=== PATIENT | female | born 1970 | race Caucasian/White ===

== ENCOUNTER 2018-07-16 10:05 | Observation (INO) ==
--- NOTE | 2018-07-16 10:18 | Emergency Department Note ---
Disposition Clinical Impression: Acute renal insufficiency Abdominal pain Qualifiers: Abdominal location: right upper quadrant Qualified Code(s): R10.11 - Right upper quadrant pain Crohn disease Qualifiers: Gastrointestinal tract location: unspecified location Digestive disease complication type: unspecified complication Qualified Code(s): K50.919 - Crohn's disease, unspecified, with unspecified complications Disposition: Admitted As Inpatient Condition: Good Referrals: Luke Anna CNP [Primary Care Provider] - () Forms: ED Satisfaction Letter Abdominal Pain HPI - General Chief Complaint: ED Abdominal Pain Stated Complaint: abd pain, n/v Time Seen by Provider: 07/16/18 10:10 Source: patient Mode of arrival: private vehicle Limitations: no limitations Nursing Notes Reviewed: Yes Vital Signs Reviewed: Yes - History of Present Illness HPI Narrative: Patient ate she started early yesterday for the "flare of my Crohn's". She states she has had right lower quadrant abdominal cramping and sharp pain around the area of her ileostomy. She relates she has had ileostomy for 30 years and she is having increased liquid yellow output. She has not had passage of blood or mucus. She did have some nausea and vomiting with one episode of vomiting yesterday. She has had persistent nausea with decreased oral intake. Her abdominal cramping has not been responsive to Bentyl nor her nauseous to Zofran. She states she started feels somewhat dry and dizzy today prompting her to come in for evaluation. She relates this is typical with her spells of her Crohn's and her last episode was a couple weeks ago. She denies any ill exposures but she states she did go to latter day on Friday. She denies fevers but has had chills. She has at most "a little cough" and no chest pain or shortness of breath. She denies difficulty with urination. She relates she often responds to a steroid when it flares like this. Pt Subjective Complaint: abdominal pain Onset (ago): day(s) (1) Consistency: Worsening Location: RLQ Pain Severity: moderate Quality: cramping, aching, sharp Radiation: none Migration to: no migration Improves with: nothing Worsens with: eating, bowel movement Context: history of similar episodes Associated symptoms: Reports: nausea, vomiting, diarrhea, chills, anorexia. Denies: fever, constipation, dysuria, hematemesis, hematochezia, melena, hematuria, syncope Treatments prior to arrival: other (Bentyl, Zofran) - Related Data Home Medications Medication Instructions Recorded Confirmed Citalopram [CeleXA] 10 mg PO DAILY 04/18/18 07/16/18 Dicyclomine [Bentyl] 10 mg PO QID 04/18/18 07/16/18 Duloxetine HCl [Cymbalta] 60 mg PO BID 04/18/18 07/16/18 Gabapentin [Neurontin] 900 mg PO TID 04/18/18 07/16/18 Metoprolol [Lopressor] 50 mg PO BID 04/18/18 07/16/18 Oxycodone HCl [Oxycontin] 10 mg PO TID 04/18/18 07/16/18 Pantoprazole Sodium [Protonix] 40 mg PO DAILY 04/18/18 07/16/18 Quetiapine Fumarate [SEROquel] 25 mg PO HS 04/18/18 07/16/18 Warfarin [Coumadin] 2 mg PO DAILY 04/18/18 07/16/18 Previous Rx's Medication Instructions Recorded predniSONE [PredniSONE] 60 mg PO DAILY #15 tablet 07/06/18 Allergies Allergy/AdvReac Type Severity Reaction Status Date / Time cephalexin [From Keflex] Allergy Hives Verified 04/18/18 18:21 All systems ED: reviewed and negative except as stated. Abdominal Pain PMH - Past Medical History Medical history: Reports: atrial fibrillation, hypertension, other (Crohn's) Female Surgical History: Reports: colostomy (Ileostomy), hysterectomy, other ( Appendectomy, bowel resection) Psychiatric history: Reports: anxiety - Social History Smoking status: Never smoker Alcohol use: Reports: none Drug use: Reports: none Physical Exam - General Limitations: no limitations General appearance: alert, in no apparent distress - Head Head exam: atraumatic, normocephalic, normal inspection - Eye Eye exam: Present: normal appearance, PERRL, EOMI. Absent: conjunctival inject ion - ENT ENT exam: normal exam, normal oropharynx, mucous membranes dry - Neck Neck exam: Present: normal inspection, full ROM, trachea midline - Chest Chest inspection: Present: normal inspection, symmetric chest wall rise - Respiratory Respiratory exam: Present: normal lung sounds bilaterally. Absent: respiratory distress, wheezes, prolonged expiratory phase - Cardiovascular Cardiovascular exam: Present: regular rate, normal rhythm, normal heart sounds. Absent: tachycardia - Abdominal Exam Abdominal exam: Present: soft, normal bowel sounds, other (Patient's ileostomy is intact. Her ileostomy bag has small liquid contents and gas.). Absent: distention, guarding, rebound, rigidity, Greer's sign Abdominal tenderness: Present: RLQ, moderate - Extremities Exam Extremities exam: Present: normal inspection, full ROM, normal capillary refill. Absent: tenderness, pedal edema - Expanded Lower Extremity Exam Neurovascular/Tendon exam: Present: normal capillary refill. Absent: motor deficit, sensory deficit, tendon deficit Gait: observed and normal - Back Exam Back exam: Present: normal inspection, full ROM. Absent: tenderness, CVA tenderness (R), CVA tenderness (L) - Neurological Exam Neurological exam: Present: alert, oriented X3, normal gait - Psychiatric Psychiatric exam: Present: normal affect, normal mood - Skin Skin exam: Present: warm, dry, intact, normal color. Absent: diaphoresis, pallor Course Course Narrative: Patient is evaluated immediately upon arrival. She is currently nontoxic in appearance, not tachycardic or hypertensive or febrile. Believe she will benefit from a bolus of IV fluids and I will start her on some Phenergan, Solu- Medrol and Toradol for inflammation and pain. We will check a baseline CBC, chemistries as well as her INR. I discussed the patient's expectations and she does believe that burst of steroids will be helpful until she can follow up with her GI specialist at [facility]. 1100: Patient does have leukocytosis and renal insufficiency suggesting sig nificant degree of dehydration and stress. I discussed her disposition with her and she is concerned about going home and maintaining adequate hydration. I advised I will contact Dr. Anaya to discuss her inpatient observation. I reviewed the options for other imaging and she would like to go without at this time. She understands if her pain was to become worse or different she may need imaging. Vital Signs Temperature 97.5 F L 07/16/18 10:06 Pulse Rate 74 07/16/18 10:06 Respiratory Rate 18 07/16/18 10:06 Blood Pressure 125/87 07/16/18 10:06 O2 Sat by Pulse Oximetry 97 07/16/18 10:06 Temperature 97.5 F L 07/16/18 10:06 Pulse Rate 72 07/16/18 10:56 Respiratory Rate 14 07/16/18 10:56 Blood Pressure 113/78 07/16/18 10:56 O2 Sat by Pulse Oximetry 100 07/16/18 10:56 Oxygen Delivery Oxygen Delivery Room Air Abdominal Pain - Differential Diagnosis Differential Diagnosis: Likely: abdominal pain non-specific, other (Exacerbation of Crohn's). Unlikely: acute appendicitis, calculus of kidney, pancreatitis, small bowel obstruction - Lab Data Lab results reviewed: Yes I reviewed the patient's lab results. Result diagrams: 07/16/18 10:30 07/16/18 10:30 Lab Results 07/16/18 07/16/18 07/16/18 Range/Units 10:30 10:30 10:30 WBC 16.2 H (4.3-11.1) K/mcL RBC 4.38 (3.82-4.97) M/mcL Hgb 13.2 (11.5-15.4) g/dL Hct 39.7 (35.3-44.9) % MCV 90.6 (83.0-100.0) fL MCH 30.1 (28.0-33.3) pg MCHC 33.2 (31.6-35.5) g/dL RDW 13.8 (11.5-14.5) % Plt Count 420 H (140-400) K/mcL MPV 7.9 L (9.4-12.4) fL Immature Gran % 1.2 (0-4) % Seg Neutrophils % 76.1 % Lymphocytes % 13.6 % Monocytes % 8.4 % Eosinophils % 0.6 % Basophils % 0.1 % Neutrophils # 12.3 H (1.6-8.9) K/mcL Lymphocytes # 2.2 (0.6-4.6) K/mcL Monocytes # 1.4 H (0.0-1.3) K/mcL Eosinophils # 0.1 (0.0-0.6) K/mcL Basophils # 0.0 (0.0-0.2) K/mcL PT 20.4 H (9.4-12.1) Seconds INR 1.8 Sodium 133 L (136-145) mEq/L Potassium 4.0 (3.5-5.1) mEq/L Chloride 108 H (98-107) mEq/L Carbon Dioxide 18 L (23-29) mEq/L BUN 30 H (6-20) mg/dL Creatinine 1.64 H (0.60-1.20) mg/dL Est GFR ( Amer) 40 L (> 60) Est GFR (Non-Af Amer) 33 L (> 60) BUN/Creatinine Ratio 18 (6-26) Glucose 102 (70-105) mg/dL Calculated Osmolality 282 (280-300) Calcium 8.6 (8.6-10.3) mg/dL - Radiology Data Radiology results reviewed: Yes I reviewed the patient's radiology results. Single view KUB x-ray is performed. His demonstrate severe rightward curvature of the lumbar spine with De La Fuente traci fixation. Patient does not demonstrate obstructive findings on the visible abdomen. No acute abdominal process is seen. This is on my interpretation. Impressions KUB X-Ray 07/16/18 10:19 IMPRESSION: Nonobstructive bowel gas pattern without free air or other acute process identified. Postsurgical changes seen related to surgery for severe scoliotic deformity. Of note, there is lucency surrounding the screws within the sacroiliac joints, though less than 2 mm. These could be followed with plain films to observe for possible development of loosening. D/ / Nate Hart MD / Nate Hart MD Interpreting Provider: Nate Hart MD
[2018-07-16] MEDS ORDERED: *HR* Promethazine 25 MG/ML VIAL IVP ONE (10:19)
[2018-07-16] MEDS ORDERED: 0.9 % Sodium Chloride 1,000 ML IVC ONE (10:19)
[2018-07-16] MEDS ORDERED: methylPREDNISolone 125 MG/2 ML VIAL IVP ONE (10:19)
[2018-07-16] MEDS ORDERED: Ketorolac 30 MG/ML VIAL IVP ONE (10:19)
[2018-07-16 10:38] LABS: Basophils % 0.1 %; Eosinophils # 0.1 K/mcL (0.0-0.6); Eosinophils % 0.6 %; Hematocrit 39.7 % (35.3-44.9); Hemoglobin 13.2 g/dL (11.5-15.4); Immature Granulocytes % 1.2 % (0-4); Lymphocytes # 2.2 K/mcL (0.6-4.6); Lymphocytes % 13.6 %; Mean Corpuscular HGB Conc 33.2 g/dL (31.6-35.5); Mean Corpuscular Hemoglobin 30.1 pg (28.0-33.3); Mean Corpuscular Volume 90.6 fL (83.0-100.0); Mean Platelet Volume 7.9 fL (9.4-12.4); Monocytes # 1.4 K/mcL (0.0-1.3); Monocytes % 8.4 %; Neutrophils # 12.3 K/mcL (1.6-8.9); Platelet Count 420 K/mcL (140-400); Red Blood Count 4.38 M/mcL (3.82-4.97); Red Cell Distribution Width 13.8 % (11.5-14.5); Segmented Neutrophils % 76.1 %
[2018-07-16 10:41] LABS: INR 1.8; Prothrombin Time 20.4 Seconds (9.4-12.1)
[2018-07-16 10:52] LABS: Calcium 8.6 mg/dL (8.6-10.3)
[2018-07-16] MEDS ORDERED: Naloxone 0.4 MG/ML INJ IVP PRN (11:50)
[2018-07-16] MEDS ORDERED: 0.9 % Sodium Chloride 1,000 ML IVC SCH (11:50)
[2018-07-16] MEDS ORDERED: *HR* Promethazine 25 MG/ML VIAL IVP PRN (13:38)
[2018-07-16] MEDS: Ondansetron 4 MG/2 ML VIAL IVP PRN (14:22)
[2018-07-16] MEDS: *HR* OxyCODONE Immed Rel 5 MG TABLET PO PRN ×2 (14:23→18:58)
[2018-07-16] MEDS ORDERED: *HR* OxyCODONE Immed Rel 5 MG TABLET PO PRN (15:00)
[2018-07-16] MEDS ORDERED: Gabapentin 300 MG CAPSULE PO SCH (15:00)
[2018-07-16] MEDS ORDERED: Ondansetron 4 MG/2 ML VIAL IVP SCH (16:00)
--- NOTE | 2018-07-16 17:05 | Internal Med History&Physical ---
Date of Encounter: 07/16/18 Time of Encounter: 16:30 Assessment and Plan (1) Vomiting and diarrhea Current visit: Yes Status: Acute Possibly multifactorial etiology from acute gastroenteritis and/or withdrawal from opiates. She reports her pain management physician recently discontinued her fentanyl patch and increased her Neurontin and she has not tolerated the change well. Continue IV fluids, give anti-emetics as needed, and recheck labs in a.m. (2) Hypertension Current visit: Yes Status: Chronic Continue Lopressor Qualifiers: Hypertension type: essential hypertension Qualified Code(s): I10 - Essential (primary) hypertension (3) Paroxysmal atrial fibrillation Current visit: Yes Status: Chronic Continue Coumadin (4) Crohn disease Current visit: Yes Status: Chronic Treatment as per above. Qualifiers: Gastrointestinal tract location: unspecified location Digestive disease complication type: unspecified complication Qualified Code(s): K50.919 - Crohn's disease, unspecified, with unspecified complications (5) Acute renal insufficiency Current visit: Yes Status: Acute Suspect dehydration from vomiting and diarrhea. Continue IV fluids and recheck labs in a.m. Internal Medicine - H&P: HPI Chief complaint: Vomiting and diarrhea Admitted From: Emergency Dept Plans for Post Hospital Care: Home History of present illness: Ms. Beck is a 48 year old female who came to emergency room after developing diarrhea 3 days earlier and vomiting within the last 24 hours. Diarrhea was manifested by significant increase in ileostomy output. She reports she vomited approximately 5 times without visible hematemesis. She had sensation of chills but no fever. She came to emergency room and was evaluated and admitted to [facility] floor for ongoing care needs. GI history is pertinent for diagnosis of Crohn's disease at age 16. 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 She has had pancreatitis in the past. She denies disorders with her liver or gallbladder. She has occasional GERD. She had EGD at [facility] May 2013 which showed no significant pathology. Past Med Surg Social Fam HX - Past Medical History Medical history: atrial fibrillation, hypertension, other (Crohn's) Additional medical history: crohns dx Psychiatric history: anxiety - Past Surgical History Additional surgical history: Back surgery. Ileostomy. power port to right chest - Social History Smoking Status: Never smoker Smokeless Tobacco Status: No Alcohol use: none Drug use: none Internal Medicine - H&P: Meds Citalopram [CeleXA] 10 mg PO DAILY 04/18/18 [History] Dicyclomine [Bentyl] 10 mg PO QID 04/18/18 [History] Duloxetine HCl [Cymbalta] 60 mg PO BID 04/18/18 [History] Gabapentin [Neurontin] 900 mg PO TID 04/18/18 [History] Metoprolol [Lopressor] 50 mg PO BID 04/18/18 [History] Pantoprazole Sodium [Protonix] 40 mg PO DAILY 04/18/18 [History] Quetiapine Fumarate [SEROquel] 25 mg PO HS 04/18/18 [History] Warfarin [Coumadin] 2 mg PO DAILY 04/18/18 [History] predniSONE [PredniSONE] 60 mg PO DAILY #15 tablet 07/06/18 [Rx] OxyCODONE Immed Rel [Roxicodone 10 MG] 10 mg PO TID PRN 07/16/18 [History] Allergy/AdvReac Type Severity Reaction Status Date / Time cephalexin [From Keflex] Allergy Hives Verified 04/18/18 18:21 All Systems PM: A 10-system review of systems was performed and is negative for pertinent findings except as documented above in the HPI. Review of systems: Gen.: Her weight has decreased from 63.503 kg May 2014 to 58.967 kg on admission now Cardiovascular: She has history of hypertension and paroxysmal atrial fibrillation. She had right atrium myxoma surgically removed 2014. She denies [place] heart failure DVT or pulmonary embolus. Respiratory: She is a lifelong nonsmoker and has no known chronic lung disease GI: As per history of present illness : She has history of cystocele. She was suspected to have rectovaginal fistula approximately 3 years ago but this was not actually present on further workup. She denies other kidney or bladder disorders. Neurologic: She denies large distribution strokes or seizures. Endocrine: She denies diabetes thyroid disease or hyperlipidemia Hematology/oncology: She denies blood disorders cancers or anemia. She had anemia in the past which resolved. Psychiatric: She has anxiety and depression Musk skeletal: She has scoliosis and had De La Fuente traci implant surgery 2016. She has osteoporosis, DJD, and fibromyalgia. She has chronic back pain and follows with a painter chassis in [place]. - Constitutional Vitals: Temp Pulse Resp BP Pulse Ox 98.2 F 72 16 135/87 99 07/16/18 15:20 07/16/18 15:20 07/16/18 15:20 07/16/18 15:20 07/16/18 12:48 Exam: Gen.: She is a well-developed well-nourished female resting comfortably in bed who appears in no acute distress at present time HEENT: Head is atraumatic and normocephalic. Eyes: EOMI. There is no scleral icterus. Mouth: Mucosa is moist. Neck: Supple and nontender. There is no thyromegaly or adenopathy noted. Heart: Regular without murmurs gallops or ectopics Lungs: No wheezes or crackles are heard. Abdomen: She has an ostomy bag in the lower abdominal area. Abdomen shows bowel sounds present but diminished. No masses or guarding are noted. Extremities: There is no cyanosis edema or clubbing noted. Dorsalis pedis and posttibial pulses are trace to 1+ palpable bilaterally. Back: She has well-healed longitudinal scar extending from her upper thoracic area to her sacrum. She has implanted hardware visualized in the upper back. Neurologic: Mental status: She is talkative and a good historian. Cranial nerves: Smile is symmetric. Forehead wrinkles bilaterally. Tongue protrudes midline. EOMI. Motor: There is no pronator drift. Cerebellar: Finger to nose is intact bilaterally. Skin: Warm and dry Internal Med - H&P Results - Labs CBC & Chem 7: 07/16/18 10:30 07/16/18 10:30 Labs: Short CBC 07/16/18 Range/Units 10:30 WBC 16.2 H (4.3-11.1) K/mcL Hgb 13.2 (11.5-15.4) g/dL Hct 39.7 (35.3-44.9) % Plt Count 420 H (140-400) K/mcL Neutrophils # 12.3 H (1.6-8.9) K/mcL BMP 07/16/18 10:30 Sodium 133 L Potassium 4.0 Chloride 108 H Carbon Dioxide 18 L BUN 30 H Creatinine 1.64 H Glucose 102 Calcium 8.6 - Impressions ITS Impressions KUB X-Ray 07/16/18 10:19 IMPRESSION: Nonobstructive bowel gas pattern without free air or other acute process identified. Postsurgical changes seen related to surgery for severe scoliotic deformity. Of note, there is lucency surrounding the screws within the sacroiliac joints, though less than 2 mm. These could be followed with plain films to observe for possible development of loosening. D/ / Nate Hart MD / Nate Hart MD Interpreting Provider: Nate Hart MD
[2018-07-16] MEDS: 0.45 % Sodium Chloride w/KCl 20 MEQ/1,000 ML MLS IVC SCH (18:49)
[2018-07-16] MEDS: *HR* Warfarin 2 MG TABLET PO SCH (18:51)
[2018-07-16] MEDS: Gabapentin 300 MG CAPSULE PO SCH (20:07)
[2018-07-16] MEDS: traZODone 50 MG TABLET PO SCH (20:07)
[2018-07-17] MEDS: *HR* OxyCODONE Immed Rel 5 MG TABLET PO PRN ×5 (02:04→21:54)
[2018-07-17] MEDS: 0.45 % Sodium Chloride w/KCl 20 MEQ/1,000 ML MLS IVC SCH ×2 (05:06→17:28)
[2018-07-17 05:17] LABS: Basophils % 0.1 %; Hematocrit 31.5 % (35.3-44.9); Hemoglobin 10.2 g/dL (11.5-15.4); Immature Granulocytes % 0.7 % (0-4); Lymphocytes % 9.8 %; Mean Corpuscular HGB Conc 32.4 g/dL (31.6-35.5); Mean Corpuscular Volume 92.6 fL (83.0-100.0); Mean Platelet Volume 8.1 fL (9.4-12.4); Monocytes % 5.7 %; Neutrophils # 14.1 K/mcL (1.6-8.9); Platelet Count 336 K/mcL (140-400); Red Cell Distribution Width 14.2 % (11.5-14.5); Segmented Neutrophils % 83.7 %
[2018-07-17 05:24] LABS: Lymphocytes # 1.7 K/mcL (0.6-4.6)
[2018-07-17 05:39] LABS: Albumin 3.2 g/dL (3.5-5.7); Albumin/Globulin Ratio 1.1 (1.1-2.2); Bilirubin,Total 0.2 mg/dL (0.3-1.0); Calcium 7.5 mg/dL (8.6-10.3); Potassium 4.7 mEq/L (3.5-5.1); Total Protein 6.2 g/dL (6.4-8.9)
[2018-07-17] MEDS: Ondansetron 4 MG/2 ML VIAL IVP PRN ×2 (08:45→13:25)
[2018-07-17] MEDS: Gabapentin 300 MG CAPSULE PO SCH ×4 (08:47→20:34)
[2018-07-17] MEDS ORDERED: predniSONE 10 MG TABLET PO SCH (09:00)
[2018-07-17] MEDS ORDERED: predniSONE 20 MG TABLET PO SCH (09:00)
--- NOTE | 2018-07-17 10:02 | Internal Med Progress Note ---
Date of Encounter: 07/17/18 Time of Encounter: 09:54 - Assessment and plan (1) Vomiting and diarrhea Current Visit: Yes Status: Acute Assessment and plan: July 17. Improved. Continue present medication but decrease IV fluid rate. Advance diet. (2) Hypertension Current Visit: Yes Status: Chronic Assessment and plan: July 17. Blood pressure borderline low. Will hold Lopressor. Qualifiers: Hypertension type: essential hypertension Qualified Code(s): I10 - Essenti al (primary) hypertension (3) Paroxysmal atrial fibrillation Current Visit: Yes Status: Chronic Assessment and plan: July 17. Continue Coumadin (4) Crohn disease Current Visit: Yes Status: Chronic Assessment and plan: July 17. As above Qualifiers: Gastrointestinal tract location: unspecified location Digestive disease complication type: unspecified complication Qualified Code(s): K50.919 - Crohn's disease, unspecified, with unspecified complications (5) Acute renal insufficiency Current Visit: Yes Status: Acute Assessment and plan: July 17. Improved. Decrease IV fluid rate and recheck labs in a.m. (6) Anemia Current Visit: Yes Status: Acute Assessment and plan: July 17. Hemoglobin has decreased to 10.2 with hydration. Check anemia testing in a.m. Qualifiers: Anemia type: unspecified type Qualified Code(s): D64.9 - Anemia, unspecified - Subjective Interval history: July 17. She has no new complaints and feels better. - Constitutional Vitals: Temp Pulse Resp BP Pulse Ox 98.5 F 76 16 101/76 96 07/17/18 07:25 07/17/18 07:25 07/17/18 07:25 07/17/18 07:25 07/17/18 07:25 Exam: She is sitting on the side of the bed and appears in no acute distress. Her affect is bright and cheerful. I reviewed her medications and lab results. Internal Medicine: Result - Labs CBC & Chem 7: 07/17/18 04:48 07/17/18 04:48 Labs: Short CBC 07/16/18 07/17/18 Range/Units 10:30 04:48 WBC 16.2 H 16.8 H (4.3-11.1) K/mcL Hgb 13.2 10.2 L D (11.5-15.4) g/dL Hct 39.7 31.5 L (35.3-44.9) % Plt Count 420 H 336 (140-400) K/mcL Neutrophils # 12.3 H 14.1 H (1.6-8.9) K/mcL BMP 07/16/18 07/17/18 10:30 04:48 Sodium 133 L 135 L Potassium 4.0 4.7 Chloride 108 H 114 H Carbon Dioxide 18 L 17 L BUN 30 H 21 H Creatinine 1.64 H 1.21 H Glucose 102 104 Calcium 8.6 7.5 L Liver Function 07/17/18 Range/Units 04:48 Total Bilirubin 0.2 L (0.3-1.0) mg/dL AST 13 (13-39) Units/L ALT 26 (7-52) Units/L Alkaline Phosphatase 56 (34-104) Units/L Albumin 3.2 L (3.5-5.7) g/dL - ABG Interpretation ABG results: PT/INR, D-dimer PT 20.4 Seconds (9.4-12.1) H 07/16/18 10:30 - Impressions Impressions KUB X-Ray 07/16/18 10:19 IMPRESSION: Nonobstructive bowel gas pattern without free air or other acute process identified. Postsurgical changes seen related to surgery for severe scoliotic deformity. Of note, there is lucency surrounding the screws within the sacroiliac joints, though less than 2 mm. These could be followed with plain films to observe for possible development of loosening. D/ / Nate Hart MD / Nate Hart MD Interpreting Provider: Nate Hart MD Consult Discharge Plan - Plan Referrals: Luke Anna, [employer] [Primary Care Provider] - 1 week
[2018-07-17] MEDS: *HR* Warfarin 2 MG TABLET PO SCH (17:28)
[2018-07-17] MEDS: traZODone 50 MG TABLET PO SCH (20:35)
[2018-07-18] MEDS: *HR* OxyCODONE Immed Rel 5 MG TABLET PO PRN ×4 (05:26→17:09)
[2018-07-18 07:24] LABS: Basophils % 0.1 %; Eosinophils # 0.1 K/mcL (0.0-0.6); Eosinophils % 0.5 %; Hematocrit 29.6 % (35.3-44.9); Hemoglobin 9.6 g/dL (11.5-15.4); Immature Granulocytes % 0.7 % (0-4); Mean Corpuscular HGB Conc 32.4 g/dL (31.6-35.5); Mean Corpuscular Hemoglobin 30.5 pg (28.0-33.3); Mean Platelet Volume 7.9 fL (9.4-12.4); Monocytes # 1.1 K/mcL (0.0-1.3); Monocytes % 6.6 %; Neutrophils # 12.4 K/mcL (1.6-8.9); Platelet Count 302 K/mcL (140-400); Red Blood Count 3.15 M/mcL (3.82-4.97); Red Cell Distribution Width 14.4 % (11.5-14.5); Segmented Neutrophils % 74.1 %
[2018-07-18 07:39] LABS: BUN/Creatinine Ratio 12 (6-26); Blood Urea Nitrogen 14 mg/dL (6-20); Calcium 7.6 mg/dL (8.6-10.3); Carbon Dioxide 17 mEq/L (23-29); Chloride 113 mEq/L (98-107); Glucose 117 mg/dL (70-105); Osmolality,Calculated 288 (280-300); Sodium 138 mEq/L (136-145); eGFR For Non-African Americans 50 (> 60)
[2018-07-18] MEDS: Gabapentin 300 MG CAPSULE PO SCH ×3 (08:57→17:08)
[2018-07-18 09:22] LABS: % Iron Saturation 55 % (15-50); Iron 167 mcg/dL (50-170); Transferrin 216 mg/dL (203-362)
[2018-07-18] MEDS: 0.45 % Sodium Chloride w/KCl 20 MEQ/1,000 ML MLS IVC SCH (09:22)
[2018-07-18 09:41] LABS: Ferritin 80 ng/mL (10-120)
[2018-07-18 09:45] LABS: Folate 5.9 ng/mL (3.0-16.0)
[2018-07-18 11:37] VITALS: BP 105/70
--- NOTE | 2018-07-18 16:05 | Discharge Summary ---
Date of Encounter: 07/18/18 Time of Encounter: 15:55 - Discharge Diagnosis (1) Acute gastroenteritis Priority: Primary Status: Acute (2) Hypertension Priority: Secondary Status: Chronic Qualifiers: Hypertension type: essential hypertension Qualified Code(s): I10 - Essential (primary) hypertension (3) Paroxysmal atrial fibrillation Priority: Secondary Status: Chronic (4) Crohn disease Priority: Secondary Status: Chronic Qualifiers: Gastrointestinal tract location: unspecified location Digestive disease complication type: unspecified complication Qualified Code(s): K50.919 - Crohn's disease, unspecified, with unspecified complications (5) Acute renal insufficiency Priority: Secondary Status: Acute (6) Anemia Priority: Secondary Status: Acute Qualifiers: Anemia type: unspecified type Qualified Code(s): D64.9 - Anemia, unspecified Hospital course: Ms. Beck is a 48 year old female who came to emergency room after developing diarrhea 3 days earlier and vomiting within the last 24 hours. Diarrhea was manifested by significant increase in ileostomy output. She reports she vomited approximately 5 times without visible hematemesis. She had sensation of chills but no fever. She came to emergency room and was evaluated and admitted to [facility] for ongoing care needs. Initial orders were written by the emergency room physician. I saw her on July 16 and performed the history and physical. She was given IV fluids. Antiemetics were used as needed. She had resolution of vomiting and diarrhea by day of discharge. There was minimal change in her leukocytosis. The differential remained without left shift. Her PCP can monitor. Azotemia improved with BUN and creatinine decreasing to 14 and 1.15 respectively by July 18. She was able to tolerate adequate amount of oral food and fluids. I suspect she has chronic kidney disease stage III. Her PCP can monitor renal indices. Anemia testing showed iron 167, transferrin saturation 55%, transferrin 216, ferritin 80, B12 615, and folate 5.9. Hemoglobin decreased to 9.6 with IV fluid administration. Her PCP can monitor the anemia. Blood pressure was borderline low so Lopressor was held on admission. Her blood pressure improved to low normal level by day of discharge. She will remain off Lopressor at discharge. There were no other new problems and on July 18 she felt improved and stable for discharge home. She will follow with her PCP Ananth Anna within 1 week. - Time Spent with Patient Total time spent providing and/or coordinating discharge services: - Discharge Medications Prescriptions: Ondansetron ODT [Zofran ODT] 4 mg SL Q4HR #20 tab.rapdis traZODone [TraZODone] 50 mg PO HS #7 tablet Home Medications: Citalopram [CeleXA] 10 mg PO DAILY 04/18/18 [History] Dicyclomine [Bentyl] 10 mg PO QID 04/18/18 [History] Duloxetine HCl [Cymbalta] 60 mg PO BID 04/18/18 [History] Gabapentin [Neurontin] 900 mg PO TID 04/18/18 [History] Pantoprazole Sodium [Protonix] 40 mg PO DAILY 04/18/18 [History] Quetiapine Fumarate [Seroquel] 25 mg PO HS 04/18/18 [History] Warfarin [Coumadin] 2 mg PO DAILY 04/18/18 [History] OxyCODONE Immed Rel [Roxicodone 10 MG] 10 mg PO TID PRN 07/16/18 [History] Ondansetron ODT [Zofran ODT] 4 mg SL Q4HR #20 tab.rapdis 07/18/18 [Rx] traZODone [TraZODone] 50 mg PO HS #7 tablet 07/18/18 [Rx] Allergies/Adverse Reactions: Allergy/AdvReac Type Severity Reaction Status Date / Time cephalexin [From Keflex] Allergy Hives Verified 04/18/18 18:21 Date of admission: 07/16/18 11:27 Primary care physician: Luke Anna CNP - Constitutional Vitals: Temp Pulse Resp BP Pulse Ox 98.4 F 91 17 105/70 98 07/18/18 11:35 07/18/18 11:35 07/18/18 11:35 07/18/18 11:35 07/18/18 11:35 - Patient Status Disposition: Home, Self-Care Condition: Good - Discharge Instructions Follow Up With: Luke Anna CNP [Primary Care Provider] - 1 week - Diet and Activity Activity: resume usual activities as tolerated Diet: advance to your usual diet
[2018-07-18] MEDS: *HR* Warfarin 2 MG TABLET PO SCH (17:09)
== END 2018-07-18 17:50 | disposition home or self-care (01) ==
LOC: EMEROOPIK 10:05 → INPPIK 10:05
PROVIDERS: ADMIT Internal Medicine; ATTEND Internal Medicine

== ENCOUNTER 2018-07-27 18:17 | Observation (INO) ==
[2018-07-27] MEDS ORDERED: 0.9 % Sodium Chloride 1,000 ML IVC ONE (18:39)
--- NOTE | 2018-07-27 18:39 | Emergency Department Note ---
Disposition Clinical Impression: Volume depletion Altered mental status Qualifiers: Altered mental status type: disorientation Qualified Code(s): R41.0 - Disorientation, unspecified Disposition: Admitted As Inpatient Condition: Fair Referrals: NONE,PCP [Primary Care Provider] - Forms: ED Satisfaction Letter Altered Mental Status HPI - General Chief Complaint: ED Altered Mental Status Stated Complaint: Altered mental status Time Seen by Provider: 07/27/18 18:34 Source: patient, EMS Mode of arrival: EMS Limitations: altered mental status Nursing Notes Reviewed: Yes Vital Signs Reviewed: Yes - History of Present Illness HPI Narrative: Patient reportedly lives alone and had not been seen by family for about 2 days. She has had recent treatment for urinary tract infection and one family visit she was poorly responsive. She has have history of Crohn's with bowel resection and ileostomy. She is not known to have any type of diabetes. EMS did check a blood sugar of 60 and administered oral glucose, or excuse and glucagon. On arrival here she does give a rudimentary history whereas she reportedly was not conversive at the scene. Family had reported that they did not think she had been taking her medications nor eating and drinking appropriately. She states that she has no pain and that she is "not feeling very well". She answers most questions with "I am not feeling very well". She does admit to nausea and vomiting but is unable to say how frequent. She reports "a little bit of abdominal pain". She appears to have normal ileostomy output without blood. S he is with without a strong odor of urine. When asked if she is having burning or difficulty with their urine she states "a little bit". In this way her history is very unreliable. Patient's prior history and the EMR is been reviewed. MD complaint: altered mental status, confusion, decreased responsiveness, weakness Onset (ago): unknown Timing confirmed by: family member Pain Severity: none Consistency of Symptoms: unknown Context: other (Recent UTI) Associated symptoms: Reports: loss of appetite, malaise, nausea/vomiting, weakness, difficulty walking, incontinence. Denies: chest pain, cough, diaphoresis, fever, chills, headaches, rash, seizure, shortness of breath, diarrhea Treatments prior to arrival: glucose - Related Data Home Medications Medication Instructions Recorded Confirmed Citalopram [CeleXA] 10 mg PO DAILY 04/18/18 07/16/18 Dicyclomine [Bentyl] 10 mg PO QID 04/18/18 07/16/18 Duloxetine HCl [Cymbalta] 60 mg PO BID 04/18/18 07/16/18 Gabapentin [Neurontin] 900 mg PO TID 04/18/18 07/16/18 Pantoprazole Sodium [Protonix] 40 mg PO DAILY 04/18/18 07/16/18 Quetiapine Fumarate [Seroquel] 25 mg PO HS 04/18/18 07/16/18 Warfarin [Coumadin] 2 mg PO DAILY 04/18/18 07/16/18 OxyCODONE Immed Rel [Roxicodone 10 10 mg PO TID PRN 07/16/18 07/16/18 MG] Previous Rx's Medication Instructions Recorded Ondansetron ODT [Zofran ODT] 4 mg SL Q4HR #20 tab.rapdis 07/18/18 traZODone [TraZODone] 50 mg PO HS #7 tablet 07/18/18 Allergies Allergy/AdvReac Type Severity Reaction Status Date / Time cephalexin [From Keflex] Allergy Hives Verified 04/18/18 18:21 Limitations: ROS unobtainable due to patients medical condition Past Medical History - Past Medical History Attestation: Yes The following information was validated with the patient. Source: patient, old records reviewed, nursing notes reviewed Medical history: Reports: atrial fibrillation, hypertension, other (History of Crohn's) Surgical history: Reports: appendectomy, colostomy (Ileostomy), hysterectomy, other (PowerPort) Psychiatric history: Reports: anxiety - Social History Smoking Status: Never smoker Smokeless Tobacco Status: No Alcohol use: Reports: none Drug use: Reports: none Physical Exam - General Limitations: altered mental status General appearance: alert, in no apparent distress - Head Head exam: atraumatic, normocephalic, normal inspection - Eye Eye exam: Present: normal appearance, PERRL, EOMI. Absent: scleral icterus, conjunctival injection - ENT ENT exam: mucous membranes dry - Neck Neck exam: Present: normal inspection, full ROM, trachea midline. Absent: tenderness, meningismus, lymphadenopathy - Chest Chest inspection: Present: normal inspection, symmetric chest wall rise - Respiratory Respiratory exam: Present: normal lung sounds bilaterally. Absent: respiratory distress, wheezes, prolonged expiratory phase - Cardiovascular Cardiovascular exam: Present: regular rate, normal rhythm, normal heart sounds - Abdominal Exam Abdominal exam: Present: soft, Non-Tender, normal bowel sounds, other (Ileostomy is intact with normal output in the right lower quadrant.). Absent: tenderness, distention, guarding, rebound, rigidity - Extremities Exam Extremities exam: Present: normal inspection, full ROM, normal capillary refill. Absent: tenderness, pedal edema, calf tenderness - Expanded Lower Extremity Exam Neurovascular/Tendon exam: Present: normal capillary refill Gait: not tested/not observed - Neurological Exam Neurological exam: Present: alert. Absent: oriented X3 - Psychiatric Psychiatric exam: Present: flat affect. Absent: agitated, anxious - Skin Skin exam: Present: warm, dry, intact, normal color. Absent: cyanosis, d iaphoresis, pallor Course Course Narrative: 2024: With return of all testing, there is no clear etiology for this patient's mental status change. She is volume depleted with a very concentrated urine. She is chronically on oxycodone but does not appear to have depressed respiration in point pupils. She has evidence for sepsis syndrome or stroke. Believe a period of observation with withholding of her oxycodone would be indicated at this time with continued IV hydration. A page has been placed to Dr. Anaya for this purpose. 2030: Dr. Anaya agrees with this plan and has given verbal orders for the patient's observation. Vital Signs O2 Sat by Pulse Oximetry 99 07/27/18 18:20 Temperature 99.0 F 07/27/18 18:23 Pulse Rate 84 07/27/18 19:50 Respiratory Rate 16 07/27/18 19:50 Blood Pressure 137/80 07/27/18 19:50 O2 Sat by Pulse Oximetry 100 07/27/18 19:50 Oxygen Delivery Oxygen Delivery Room Air Altered Mental Status - Differential Diagnosis Likely: alcoholic intoxication, altered mental status, hypoglycemia, hyponatremia, psychiatric disease, sepsis, substance use - Medical Records Medical records reviewed: Yes I reviewed the patient's medical records. - Lab Data Lab results reviewed: Yes I reviewed the patient's lab results. Result diagrams: 07/27/18 18:58 07/27/18 18:58 Lab Results 07/27/18 07/27/18 07/27/18 Range/Units 18:58 18:58 18:58 WBC 13.0 H (4.3-11.1) K/mcL RBC 3.23 L (3.82-4.97) M/mcL Hgb 9.8 L (11.5-15.4) g/dL Hct 30.1 L (35.3-44.9) % MCV 93.2 (83.0-100.0) fL MCH 30.3 (28.0-33.3) pg MCHC 32.6 (31.6-35.5) g/dL RDW 14.7 H (11.5-14.5) % Plt Count 319 (140-400) K/mcL MPV 8.0 L (9.4-12.4) fL Immature Gran % 0.7 (0-4) % Seg Neutrophils % 89.3 % Lymphocytes % 4.5 % Monocytes % 5.1 % Eosinophils % 0.1 % Basophils % 0.3 % Neutrophils # 11.6 H (1.6-8.9) K/mcL Lymphocytes # 0.6 (0.6-4.6) K/mcL Monocytes # 0.7 (0.0-1.3) K/mcL Eosinophils # 0.0 (0.0-0.6) K/mcL Basophils # 0.0 (0.0-0.2) K/mcL PT 36.3 H (9.4-12.1) Seconds INR 3.2 APTT 53.5 H (26.0-36.0) Seconds Sodium 132 L (136-145) mEq/L Potassium 3.8 (3.5-5.1) mEq/L Chloride 101 (98-107) mEq/L Carbon Dioxide 19 L (23-29) mEq/L BUN 24 H (6-20) mg/dL Creatinine 1.28 H (0.60-1.20) mg/dL Est GFR ( Amer) 54 L (> 60) Est GFR (Non-Af Amer) 44 L (> 60) BUN/Creatinine Ratio 19 (6-26) Glucose 267 H (70-105) mg/dL Calculated Osmolality 287 (280-300) Lactic Acid (0.5-2.2) mmol/L Calcium 8.3 L (8.6-10.3) mg/dL Total Bilirubin 0.2 L (0.3-1.0) mg/dL Direct Bilirubin 0.1 (0.0-0.2) mg/dL Indirect Bilirubin 0.1 (0.0-1.2) mg/dL AST 16 (13-39) Units/L ALT 20 (7-52) Units/L Alkaline Phosphatase 87 (34-104) Units/L Troponin I < 0.03 (< 0.04) ng/mL Serum Total Protein 6.9 (6.4-8.9) g/dL Albumin 3.5 (3.5-5.7) g/dL Globulin 3.4 (2.4-3.5) g/dL Albumin/Globulin Ratio 1.0 L (1.1-2.2) Urine Color (Yellow) Urine Clarity (Clear) Urine pH (5.0-8.0) pH Units Ur Specific [place] (1.010-1.025) Urine Protein (Neg-Trace) mg/dL Urine Glucose (UA) (Normal) mg/dL Urine Ketones (Negative) mg/dL Urine Blood (Negative) Urine Nitrite (Negative) Urine Bilirubin (Negative) Urine Urobilinogen (Normal) mg/dL Ur Leukocyte Esterase (Negative) Urine Microscopic RBC (0-3) per hpf Urine Microscopic WBC (0-3) per hpf Ur Squamous Epith Cells (None-Few) per lpf Urine Bacteria (None-Few) per hpf Hyaline Casts (None-Few) per lpf Granular Casts (None Seen) per lpf Urine Mucus (Few) Ur Culture Indicated? (NO) Digoxin (0.8-2.0) ng/mL Urine Opiates Screen (Rjsfkq=840) ng/mL Ur Oxycodone Screen (Cutoff= 100) ng/mL Ur Barbiturates Screen (Lacjtn=262) ng/mL Ur Phencyclidine Scrn (Cutoff=25) ng/mL Ur Amphetamines Screen (Ymciug=2153) ng/mL U Benzodiazepines Scrn (Bgpsal=625) ng/mL Urine Cocaine Screen (Cutoff= 300) ng/mL U Marijuana (THC) Screen (Cutoff = 50) ng/mL Ur Drug Screen Interp Ethyl Alcohol < 10 (Less than 10) mg/dL 07/27/18 07/27/18 07/27/18 Range/Units 18:58 18:58 19:54 WBC (4.3-11.1) K/mcL RBC (3.82-4.97) M/mcL Hgb (11.5-15.4) g/dL Hct (35.3-44.9) % MCV (83.0-100.0) fL MCH (28.0-33.3) pg MCHC (31.6-35.5) g/dL RDW (11.5-14.5) % Plt Count (140-400) K/mcL MPV (9.4-12.4) fL Immature Gran % (0-4) % Seg Neutrophils % % Lymphocytes % % Monocytes % % Eosinophils % % Basophils % % Neutrophils # (1.6-8.9) K/mcL Lymphocytes # (0.6-4.6) K/mcL Monocytes # (0.0-1.3) K/mcL Eosinophils # (0.0-0.6) K/mcL Basophils # (0.0-0.2) K/mcL PT (9.4-12.1) Seconds INR APTT (26.0-36.0) Seconds Sodium (136-145) mEq/L Potassium (3.5-5.1) mEq/L Chloride (98-107) mEq/L Carbon Dioxide (23-29) mEq/L BUN (6-20) mg/dL Creatinine (0.60-1.20) mg/dL Est GFR ( Amer) (> 60) Est GFR (Non-Af Amer) (> 60) BUN/Creatinine Ratio (6-26) Glucose (70-105) mg/dL Calculated Osmolality (280-300) Lactic Acid 1.1 (0.5-2.2) mmol/L Calcium (8.6-10.3) mg/dL Total Bilirubin (0.3-1.0) mg/dL Direct Bilirubin (0.0-0.2) mg/dL Indirect Bilirubin (0.0-1.2) mg/dL AST (13-39) Units/L ALT (7-52) Units/L Alkaline Phosphatase (34-104) Units/L Troponin I (< 0.04) ng/mL Serum Total Protein (6.4-8.9) g/dL Albumin (3.5-5.7) g/dL Globulin (2.4-3.5) g/dL Albumin/Globulin Ratio (1.1-2.2) Urine Color Yellow (Yellow) Urine Clarity Clear (Clear) Urine pH 5.5 (5.0-8.0) pH Units Ur Specific [place] >= 1.030 H (1.010-1.025) Urine Protein 100 H (Neg-Trace) mg/dL Urine Glucose (UA) Normal (Normal) mg/dL Urine Ketones 80 H (Negative) mg/dL Urine Blood Trace-intact H (Negative) Urine Nitrite Negative (Negative) Urine Bilirubin Small H (Negative) Urine Urobilinogen Normal (Normal) mg/dL Ur Leukocyte Esterase Negative (Negative) Urine Microscopic RBC 0-3 (0-3) per hpf Urine Microscopic WBC 0-3 (0-3) per hpf Ur Squamous Epith Cells Few (None-Few) per lpf Urine Bacteria Moderate H (None-Few) per hpf Hyaline Casts Few (None-Few) per lpf Granular Casts Few H (None Seen) per lpf Urine Mucus Few (Few) Ur Culture Indicated? NO (NO) Digoxin 0.5 L (0.8-2.0) ng/mL Urine Opiates Screen (Sbfmeu=078) ng/mL Ur Oxycodone Screen (Cutoff= 100) ng/mL Ur Barbiturates Screen (Ymedii=902) ng/mL Ur Phencyclidine Scrn (Cutoff=25) ng/mL Ur Amphetamines Screen (Lykupx=8664) ng/mL U Benzodiazepines Scrn (Xfikbh=178) ng/mL Urine Cocaine Screen (Cutoff= 300) ng/mL U Marijuana (THC) Screen (Cutoff = 50) ng/mL Ur Drug Screen Interp Ethyl Alcohol (Less than 10) mg/dL 07/27/18 Range/Units 19:54 WBC (4.3-11.1) K/mcL RBC (3.82-4.97) M/mcL Hgb (11.5-15.4) g/dL Hct (35.3-44.9) % MCV (83.0-100.0) fL MCH (28.0-33.3) pg MCHC (31.6-35.5) g/dL RDW (11.5-14.5) % Plt Count (140-400) K/mcL MPV (9.4-12.4) fL Immature Gran % (0-4) % Seg Neutrophils % % Lymphocytes % % Monocytes % % Eosinophils % % Basophils % % Neutrophils # (1.6-8.9) K/mcL Lymphocytes # (0.6-4.6) K/mcL Monocytes # (0.0-1.3) K/mcL Eosinophils # (0.0-0.6) K/mcL Basophils # (0.0-0.2) K/mcL PT (9.4-12.1) Seconds INR APTT (26.0-36.0) Seconds Sodium (136-145) mEq/L Potassium (3.5-5.1) mEq/L Chloride (98-107) mEq/L Carbon Dioxide (23-29) mEq/L BUN (6-20) mg/dL Creatinine (0.60-1.20) mg/dL Est GFR ( Amer) (> 60) Est GFR (Non-Af Amer) (> 60) BUN/Creatinine Ratio (6-26) Glucose (70-105) mg/dL Calculated Osmolality (280-300) Lactic Acid (0.5-2.2) mmol/L Calcium (8.6-10.3) mg/dL Total Bilirubin (0.3-1.0) mg/dL Direct Bilirubin (0.0-0.2) mg/dL Indirect Bilirubin (0.0-1.2) mg/dL AST (13-39) Units/L ALT (7-52) Units/L Alkaline Phosphatase (34-104) Units/L Troponin I (< 0.04) ng/mL Serum Total Protein (6.4-8.9) g/dL Albumin (3.5-5.7) g/dL Globulin (2.4-3.5) g/dL Albumin/Globulin Ratio (1.1-2.2) Urine Color (Yellow) Urine Clarity (Clear) Urine pH (5.0-8.0) pH Units Ur Specific [place] (1.010-1.025) Urine Protein (Neg-Trace) mg/dL Urine Glucose (UA) (Normal) mg/dL Urine Ketones (Negative) mg/dL Urine Blood (Negative) Urine Nitrite (Negative) Urine Bilirubin (Negative) Urine Urobilinogen (Normal) mg/dL Ur Leukocyte Esterase (Negative) Urine Microscopic RBC (0-3) per hpf Urine Microscopic WBC (0-3) per hpf Ur Squamous Epith Cells (None-Few) per lpf Urine Bacteria (None-Few) per hpf Hyaline Casts (None-Few) per lpf Granular Casts (None Seen) per lpf Urine Mucus (Few) Ur Culture Indicated? (NO) Digoxin (0.8-2.0) ng/mL Urine Opiates Screen Positive H (Bgpshd=129) ng/mL Ur Oxycodone Screen Positive H (Cutoff= 100) ng/mL Ur Barbiturates Screen Negative (Grlcgg=604) ng/mL Ur Phencyclidine Scrn Negative (Cutoff=25) ng/mL Ur Amphetamines Screen Negative (Tfsdgr=0996) ng/mL U Benzodiazepines Scrn Negative (Gklxuh=419) ng/mL Urine Cocaine Screen Negative (Cutoff= 300) ng/mL U Marijuana (THC) Screen Negative (Cutoff = 50) ng/mL Ur Drug Screen Interp See Below Ethyl Alcohol (Less than 10) mg/dL - Radiology Data Radiology results reviewed: Yes I reviewed the patient's radiology results. CT head is performed. This is reviewed on bone and soft tissue windows. There is no evidence for acute intracranial bleed, shift, mass or edema. Mastoids and sinuses appear normal. There is no fracture evident. This is on my in terpretation. Single view chest x-ray is performed. This shows elevated right hemidiaphragm with mild increased interstitial markings. Imaging does not demonstrate evidence for acute infiltrate, effusion, pneumothorax, foreign body or overt heart failure. The cardiac silhouette is normal. Patient has a port in the right upper chest. She has De La Fuente rods traversing the extent of the thoracic spine without evidence for hardware failure. This is on my interpretation. CT is performed of the abdomen and pelvis without IV or oral contrast. This demonstrates the patient's surgeon rods to extend all the way down to the sacral region. Basal lungs are free of infiltrate, effusion or failure. Abdomen evaluation somewhat restricted due to streak artifact from the De La Fuente rods. Liver, spleen and pancreas appear normal. Bowel is without evidence for inf lammation, obstruction or perforation. She appears to have normal small bowel terminating at the right lower quadrant ileostomy. No acute abnormality is seen in the abdomen. This is on my interpretation. Impressions Chest X-Ray 07/27/18 18:39 IMPRESSION: Mild pulmonary vascular congestion. Otherwise, stable chest D/ / Ned Dickens MD / Ned Dickens MD Interpreting Provider: Ned Dickens MD Head CT 07/27/18 18:40 IMPRESSION: No acute intracranial abnormality. D/ / Ned Dickens MD / Ned Dickens MD Interpreting Provider: Ned Dickens MD Abdomen/Pelvis CT 07/27/18 18:45 IMPRESSION: No acute intra-abdominal abnormality with above findings. Upper images do show moderate pulmonary artery dilation which can be seen with pulmonary arterial hypertension. D/ / Brennen Lyon MD / Brennne Lyon MD Interpreting Provider: Brennen Lyon MD - EKG Data EKG attestation: Yes I reviewed and interpreted this EKG. EKG shows normal: sinus rhythm, axis, intervals, QRS complexes, ST-T waves Rate: normal (89) Interpretation: no acute changes, nonspecific ST-T wave changes TPA Checklist - LKW: 3-4.5 hrs Add. Warnings/Precautions Patient/family understanding: The patient/family members have been counseled and understood the risk, benefit, and alternatives of treatment. Critical Care Time Critical Care Time: Yes Total Critical Care Time: 45 Attestation: As this patient did present with signs and symptoms of potential life- threatening illness requiring my urgent intervention, total critical care time in this patient's care has been 45 minutes, not withstanding separately reportable procedures.
[2018-07-27 19:11] LABS: Basophils % 0.3 %; Eosinophils % 0.1 %; Hematocrit 30.1 % (35.3-44.9); Hemoglobin 9.8 g/dL (11.5-15.4); Immature Granulocytes % 0.7 % (0-4); Lymphocytes # 0.6 K/mcL (0.6-4.6); Lymphocytes % 4.5 %; Mean Corpuscular HGB Conc 32.6 g/dL (31.6-35.5); Mean Corpuscular Hemoglobin 30.3 pg (28.0-33.3); Mean Corpuscular Volume 93.2 fL (83.0-100.0); Monocytes # 0.7 K/mcL (0.0-1.3); Monocytes % 5.1 %; Neutrophils # 11.6 K/mcL (1.6-8.9); Platelet Count 319 K/mcL (140-400); Red Blood Count 3.23 M/mcL (3.82-4.97); Red Cell Distribution Width 14.7 % (11.5-14.5); Segmented Neutrophils % 89.3 %
[2018-07-27 19:19] LABS: INR 3.2
[2018-07-27 19:31] LABS: Alanine Aminotransferase 20 Units/L (7-52); Albumin 3.5 g/dL (3.5-5.7); Alkaline Phosphatase 87 Units/L (34-104); Aspartate Amino Transferase 16 Units/L (13-39); BUN/Creatinine Ratio 19 (6-26); Bilirubin,Direct 0.1 mg/dL (0.0-0.2); Bilirubin,Indirect 0.1 mg/dL (0.0-1.2); Bilirubin,Total 0.2 mg/dL (0.3-1.0); Blood Urea Nitrogen 24 mg/dL (6-20); Calcium 8.3 mg/dL (8.6-10.3); Carbon Dioxide 19 mEq/L (23-29); Chloride 101 mEq/L (98-107); Ethanol < 10 mg/dL (Less than 10); Globulin 3.4 g/dL (2.4-3.5); Glucose 267 mg/dL (70-105); Osmolality,Calculated 287 (280-300); Potassium 3.8 mEq/L (3.5-5.1); Sodium 132 mEq/L (136-145); Total Protein 6.9 g/dL (6.4-8.9); Troponin I < 0.03 ng/mL (< 0.04); eGFR For Non-African Americans 44 (> 60)
[2018-07-27 19:47] LABS: Prothrombin Time 36.3 Seconds (9.4-12.1)
[2018-07-27 19:48] LABS: Activated Partial Thrombo Time 53.5 Seconds (26.0-36.0)
[2018-07-27 19:59] LABS: Bilirubin,Urine Small (Negative); Blood,Urine Trace-intact (Negative); Clarity,Urine Clear (Clear); Color,Urine Yellow (Yellow); Glucose,Urine (UA) Normal (Normal); Ketones,Urine 80 mg/dL (Negative); Leukocyte Esterase,Urine Negative (Negative); Nitrite,Urine Negative (Negative); PH,Urine 5.5 pH Units (5.0-8.0); Protein,Urine 100 mg/dL (Neg-Trace); Specific Gravity,Urine >= 1.030 (1.010-1.025); Urobilinogen,Urine Normal (Normal)
[2018-07-27 20:18] LABS: Bacteria,Urine Moderate per hpf (None-Few); Granular Casts,Urine Few per lpf (None Seen); RBC,Urine 0-3 per hpf (0-3); Squamous Epithelial Cell,Urine Few per lpf (None-Few); WBC,Urine 0-3 per hpf (0-3)
[2018-07-27 20:20] LABS: Hyaline Casts,Urine Few per lpf (None-Few); Mucus,Urine Few (Few)
[2018-07-27 20:25] LABS: Amphetamine Screen,Urine Negative ng/mL (Cutoff=1000); Barbiturate Screen,Urine Negative ng/mL (Cutoff=200); Benzodiazepines Screen,Urine Negative ng/mL (Cutoff=200); Cannabinoid Screen,Urine Negative ng/mL (Cutoff = 50); Cocaine Screen,Urine Negative ng/mL (Cutoff= 300); Opiate Screen,Urine Positive ng/mL (Cutoff=300); Phencyclidine Screen,Urine Negative ng/mL (Cutoff=25)
[2018-07-27] MEDS ORDERED: 0.9 % Sodium Chloride 1,000 ML IVC SCH ×2 (20:30→21:22)
[2018-07-27] MEDS ORDERED: Naloxone 0.4 MG/ML INJ IVP PRN (21:22)
[2018-07-28] MEDS ORDERED: D5% in 0.9% NACL w KCl 20 MEQ/1,000 ML MLS IVC SCH (01:00)
[2018-07-28] MEDS: Ondansetron ODT 4 MG TAB.RAPDIS SL SCH ×6 (01:01→20:55)
--- NOTE | 2018-07-28 10:39 | Internal Med History&Physical ---
Date of Encounter: 07/28/18 Time of Encounter: 10:15 Assessment and Plan (1) Altered mental status Current visit: Yes Status: Acute Suspect multifactorial etiology with acute renal insufficiency/dehydration with underlying infection of unknown location manifested by leukocytosis with left shift on differential. IV fluids will be given. Blood cultures were drawn in emergency room. Further workup will be done as needed. Qualifiers: Altered mental status type: disorientation Qualified Code(s): R41.0 - Disorientation, unspecified (2) Acute renal insufficiency Current visit: No Status: Acute As above (3) Paroxysmal atrial fibrillation Current visit: No Status: Chronic Continue Coumadin (4) Anemia Current visit: No Status: Acute Anemia testing last admission showed iron 167, transferrin saturation 55%, transferrin 216, ferritin 80, B12 615, and folate 5.9. She has been anemic on most labs since February 2014. Qualifiers: Anemia type: unspecified type Qualified Code(s): D64.9 - Anemia, unspecified (5) CKD (chronic kidney disease) stage 3, GFR 30-59 ml/min Current visit: Yes Status: Chronic IV fluids have been ordered. Renal indices will be monitored. Internal Medicine - H&P: HPI Chief complaint: Mental status change Admitted From: Emergency Dept Plans for Post Hospital Care: Home History of present illness: Ms. Beck is a 48 year old female who came to the hospital after she was found poorly responsive by family. EMS was called and found blood sugar 60. Glucose and glucagon were administered with slight improvement. She was evaluated in emergency room and found to have elevated WBC and anemia but both were improved from 07/18/2018 day of discharge from her last [facility] hospitalization for acute gastroenteritis symptoms. She was also found to have azotemia likely due to dehydration. She was admitted to Med[facility] floor for ongoing care needs. Her neurologic history is negative for large distribution strokes or seizures. Past Med Surg Social Fam HX - Past Medical History Medical history: atrial fibrillation, hypertension, renal disease, other Additional medical history: Crohns Psychiatric history: anxiety - Past Surgical History Surgical History: appendectomy, hysterectomy, other Additional surgical history: Ileostomy, back surgery - Social History Smoking Status: Never smoker Smokeless Tobacco Status: No Alcohol use: none Drug use: none - Family History Mother Living Status: Hx Family Cancer: Yes Internal Medicine - H&P: Meds Citalopram [CeleXA] 10 mg PO DAILY 04/18/18 [History] Dicyclomine [Bentyl] 10 mg PO QID 04/18/18 [History] Duloxetine HCl [Cymbalta] 60 mg PO BID 04/18/18 [History] Gabapentin [Neurontin] 900 mg PO TID 04/18/18 [History] Pantoprazole Sodium [Protonix] 40 mg PO DAILY 04/18/18 [History] Quetiapine Fumarate [Seroquel] 25 mg PO HS 04/18/18 [History] Warfarin [Coumadin] 2 mg PO DAILY 04/18/18 [History] OxyCODONE Immed Rel [Roxicodone 10 MG] 10 mg PO TID PRN 07/16/18 [History] Ondansetron ODT [Zofran ODT] 4 mg SL Q4HR #20 tab.rapdis 07/18/18 [Rx] traZODone [TraZODone] 50 mg PO HS #7 tablet 07/18/18 [Rx] Allergy/AdvReac Type Severity Reaction Status Date / Time cephalexin [From Keflex] Allergy Hives Verified 04/18/18 18:21 All Systems PM: A 10-system review of systems was performed and is negative for pertinent findings except as documented above in the HPI. Review of systems: Review of systems from her June 2018 [facility] hospitalization were reviewed and revised as below. Gen.: Her weight decreased from 63.503 kg May 2014 to 58.967 kg on admis grzegorz 07/16/2018 but has risen to 61.689 kg now Cardiovascular: She has history of hypertension and paroxysmal atrial fibrillation. She had right atrium myxoma surgically removed 2014. She denies [place] heart failure DVT or pulmonary embolus. Respiratory: She is a lifelong nonsmoker and has no known chronic lung disease GI: She was diagnosed with Crohn's disease at age 16. 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 She has had pancreatitis in the past. She denies disorders of her liver or gallbladder. She has occasional GERD. She had EGD at [facility] May 2013 which showed no significant pathology. She was hospitalized 07/16/2018 at [facility] with acute gastroenteritis symptoms. : She has history of cystocele. She was suspected to have rectovaginal fistula approximately 3 years ago but this was not actually present on further workup. She has chronic kidney disease stage III. She denies other kidney or bladder disorders. Neurologic: As per history of present illness Endocrine: She denies diabetes thyroid disease or hyperlipidemia Hematology/oncology: She denies blood disorders cancers or anemia. She had anemia in the past which resolved. Psychiatric: She has anxiety and depression Musk skeletal: She has scoliosis and had [place] traci implant surgery 2016. She has osteoporosis, DJD, and fibromyalgia. She has chronic back pain and follows with a paintings conservator in [place]. - Constitutional Vitals: Temp Pulse Resp BP Pulse Ox 98.7 F 78 16 136/81 97 07/28/18 04:59 07/28/18 04:59 07/28/18 04:59 07/28/18 04:59 07/28/18 04:59 Exam: Gen.: She is a well-developed well-nourished female lying in bed who appears lethargic and is slow to respond to questions frequently. HEENT: Head is atraumatic and normocephalic. Eyes: EOMI. There is no scleral icterus. Mouth: Mucosa is dry. Neck: Supple and nontender. There is no thyromegaly or adenopathy noted. Heart: Regular without murmurs gallops or ectopics Lungs: No wheezes or crackles are heard. Abdomen: She has an ileostomy in the mid abdominal area. The abdomen is soft and nontender to palpation. Extremities: She is wearing IHSAN hose bilaterally which I did not remove. There is no pitting edema palpated through the IHSAN hose. She has no cyanosis of her nails. Neurologic: Mental status: She is able to answer some questions but is slow in response time. She knows my name but cannot state her age, location, or perform simple money math. Cranial nerves: Smile is symmetric. Forehead wrinkles bilaterally. Tongue protrudes midline. EOMI. Motor: There is no pronator drift. Cerebellar: Finger to nose is intact bilaterally. Skin: She has erythema of a significant portion of her left nasal area. There is a shallow 2 mm ulcerative area on her upper lip near the midline. She has multiple very small laceration/fissures of her fingers bilaterally. Internal Med - H&P Results - Labs CBC & Chem 7: 07/27/18 18:58 07/27/18 18:58 Labs: Short CBC 07/27/18 Range/Units 18:58 WBC 13.0 H (4.3-11.1) K/mcL Hgb 9.8 L (11.5-15.4) g/dL Hct 30.1 L (35.3-44.9) % Plt Count 319 (140-400) K/mcL Neutrophils # 11.6 H (1.6-8.9) K/mcL BMP 07/27/18 18:58 Sodium 132 L Potassium 3.8 Chloride 101 Carbon Dioxide 19 L BUN 24 H Creatinine 1.28 H Glucose 267 H Calcium 8.3 L Cardiac Enzymes 07/27/18 Range/Units 18:58 Troponin I < 0.03 (< 0.04) ng/mL Liver Function 07/27/18 Range/Units 18:58 Total Bilirubin 0.2 L (0.3-1.0) mg/dL Direct Bilirubin 0.1 (0.0-0.2) mg/dL AST 16 (13-39) Units/L ALT 20 (7-52) Units/L Alkaline Phosphatase 87 (34-104) Units/L Albumin 3.5 (3.5-5.7) g/dL Urine 07/27/18 Range/Units 19:54 Urine Color Yellow (Yellow) Urine Clarity Clear (Clear) Urine pH 5.5 (5.0-8.0) pH Units Ur Specific [place] >= 1.030 H (1.010-1.025) Urine Protein 100 H (Neg-Trace) mg/dL Urine Glucose (UA) Normal (Normal) mg/dL - Impressions ITS Impressions Chest X-Ray 07/27/18 18:39 IMPRESSION: Mild pulmonary vascular congestion. Otherwise, stable chest D/ / Ned Dickens MD / Ned Dickens MD Interpreting Provider: Ned Dickens MD Head CT 07/27/18 18:40 IMPRESSION: No acute intracranial abnormality. D/ / Ned Dickens MD / Ned Dickens MD Interpreting Provider: Ned Dickens MD Abdomen/Pelvis CT 07/27/18 18:45 IMPRESSION: No acute intra-abdominal abnormality with above findings. Upper images do show moderate pulmonary artery dilation which can be seen with pulmonary arterial hypertension. D/ / Brennen Lyon MD / Brennen Lyon MD Interpreting Provider: Brennen Lyon MD
--- NOTE | 2018-07-28 17:52 | Electrocardiograph Report ---
[address] [place], [place] [address] Test Date: 2018-07-27 Pat Name: Kortney Beck Department: [id number] Room: [facility] Gender: F Store Lead: Laura : 1970 Requested By: Nelson Barragan Order Number: [id number] Reading MD: Sonia Rodriguez Measurements Intervals [place] Rate: 89 P: 50 RI: 139 QRS: 24 QRSD: 82 T: 24 QT: 364 QTc: 411 Interpretive Statements SINUS RHYTHM LOW QRS VOLTAGE IN EXTREMITY LEADS NONSPECIFIC ST-T WAVE CHANGES Electronically Signed On 07-28-2018 17:51:01 EST by Sonia Rodriguez
[2018-07-28] MEDS: *HR* OxyCODONE/APAP 10/325 TABLET PO PRN (21:36)
[2018-07-29] MEDS: Ondansetron ODT 4 MG TAB.RAPDIS SL SCH ×6 (00:59→21:20)
[2018-07-29] MEDS: *HR* OxyCODONE/APAP 10/325 TABLET PO PRN ×5 (04:17→23:43)
[2018-07-29 05:32] LABS: Basophils # 0.1 K/mcL (0.0-0.2); Basophils % 0.6 %; Eosinophils # 0.1 K/mcL (0.0-0.6); Eosinophils % 1.5 %; Hematocrit 23.7 % (35.3-44.9); Hemoglobin 8.1 g/dL (11.5-15.4); Immature Granulocytes % 0.2 % (0-4); Lymphocytes # 1.5 K/mcL (0.6-4.6); Lymphocytes % 17.2 %; Mean Corpuscular HGB Conc 34.2 g/dL (31.6-35.5); Mean Corpuscular Hemoglobin 30.9 pg (28.0-33.3); Mean Corpuscular Volume 90.5 fL (83.0-100.0); Mean Platelet Volume 8.2 fL (9.4-12.4); Monocytes # 1.1 K/mcL (0.0-1.3); Monocytes % 12.6 %; Neutrophils # 5.7 K/mcL (1.6-8.9); Platelet Count 285 K/mcL (140-400); Red Blood Count 2.62 M/mcL (3.82-4.97); Red Cell Distribution Width 14.8 % (11.5-14.5); Segmented Neutrophils % 67.9 %
[2018-07-29 06:12] LABS: Prothrombin Time 22.5 Seconds (9.4-12.1)
[2018-07-29 06:33] LABS: BUN/Creatinine Ratio 13 (6-26); Blood Urea Nitrogen 11 mg/dL (6-20); Calcium 6.9 mg/dL (8.6-10.3); Carbon Dioxide 23 mEq/L (23-29); Chloride 106 mEq/L (98-107); Glucose 93 mg/dL (70-105); Osmolality,Calculated 281 (280-300); Potassium 3.1 mEq/L (3.5-5.1); Sodium 136 mEq/L (136-145); eGFR For Non-African Americans > 60 (> 60)
--- NOTE | 2018-07-29 10:40 | Internal Med Progress Note ---
Date of Encounter: 07/29/18 Time of Encounter: 10:25 - Assessment and plan (1) Altered mental status Current Visit: Yes Status: Acute Assessment and plan: July 29. Resolved. Continue to monitor. Qualifiers: Altered mental status type: disorientation Qualified Code(s): R41.0 - Disorientation, unspecified (2) Acute renal insufficiency Current Visit: No Status: Acute Assessment and plan: July 29. Resolved. BUN and creatinine have improved to 11 and 0.83 respectively with estimated GFR greater than 60. Decrease IV fluids and advance diet. (3) Paroxysmal atrial fibrillation Current Visit: No Status: Chronic Assessment and plan: July 29. Continue Coumadin (4) Anemia Current Visit: No Status: Acute Assessment and plan: July 29. Hemoglobin decreased 8.1. Decrease IV fluid rate and monitor CBC. Qualifiers: Anemia type: unspecified type Qualified Code(s): D64.9 - Anemia, unspecified (5) CKD (chronic kidney disease) stage 3, GFR 30-59 ml/min Current Visit: Yes Status: Chronic Assessment and plan: July 29. BUN and creatinine improved as above. Continue to monitor. - Subjective Interval history: July 29. She has no new complaints. She states her back pain is significant. - Constitutional Vitals: Temp Pulse Resp BP Pulse Ox 98.7 F 97 20 152/74 97 07/29/18 06:51 07/29/18 06:51 07/29/18 06:51 07/29/18 06:51 07/29/18 06:51 Exam: She is resting comfortably in bed and appears in no acute distress. She is back to her baseline mental status and appropriate in conversation. I reviewed her medications and lab results. Internal Medicine: Result - Labs CBC & Chem 7: 07/29/18 04:21 07/29/18 04:21 Labs: Short CBC 07/29/18 Range/Units 04:21 WBC 8.4 (4.3-11.1) K/mcL Hgb 8.1 L D (11.5-15.4) g/dL Hct 23.7 L (35.3-44.9) % Plt Count 285 (140-400) K/mcL Neutrophils # 5.7 (1.6-8.9) K/mcL BMP 07/29/18 04:21 Sodium 136 Potassium 3.1 L Chloride 106 Carbon Dioxide 23 BUN 11 Creatinine 0.83 Glucose 93 Calcium 6.9 L - ABG Interpretation ABG results: PT/INR, D-dimer PT 22.5 Seconds (9.4-12.1) H 07/29/18 04:21 - VTE Documentation of Mechanical Device: Intermittent pneumatic compression device Consult Discharge Plan - Plan Referrals: NONE,PCP [Primary Care Provider] - 1 week
[2018-07-29] MEDS: 0.45 % Sodium Chloride w/KCl 20 MEQ/1,000 ML MLS IVC SCH ×2 (11:58→21:18)
[2018-07-29] MEDS: Gabapentin 300 MG CAPSULE PO SCH ×2 (14:00→21:19)
[2018-07-30] MEDS: Ondansetron ODT 4 MG TAB.RAPDIS SL SCH ×3 (04:34→08:09)
[2018-07-30] MEDS: *HR* OxyCODONE/APAP 10/325 TABLET PO PRN ×2 (04:45→08:10)
[2018-07-30] MEDS: 0.45 % Sodium Chloride w/KCl 20 MEQ/1,000 ML MLS IVC SCH (05:11)
[2018-07-30 05:54] LABS: Basophils % 0.6 %; Eosinophils # 0.2 K/mcL (0.0-0.6); Eosinophils % 3.1 %; Hematocrit 25.2 % (35.3-44.9); Hemoglobin 8.4 g/dL (11.5-15.4); Immature Granulocytes % 0.3 % (0-4); Lymphocytes # 1.7 K/mcL (0.6-4.6); Lymphocytes % 25.2 %; Mean Corpuscular HGB Conc 33.3 g/dL (31.6-35.5); Mean Corpuscular Hemoglobin 30.2 pg (28.0-33.3); Mean Corpuscular Volume 90.6 fL (83.0-100.0); Mean Platelet Volume 7.6 fL (9.4-12.4); Monocytes # 0.8 K/mcL (0.0-1.3); Monocytes % 11.2 %; Neutrophils # 4.1 K/mcL (1.6-8.9); Platelet Count 292 K/mcL (140-400); Red Blood Count 2.78 M/mcL (3.82-4.97); Segmented Neutrophils % 59.6 %
[2018-07-30 06:15] LABS: BUN/Creatinine Ratio 6 (6-26); Blood Urea Nitrogen 5 mg/dL (6-20); Calcium 6.9 mg/dL (8.6-10.3); Carbon Dioxide 24 mEq/L (23-29); Chloride 103 mEq/L (98-107); Glucose 87 mg/dL (70-105); Osmolality,Calculated 271 (280-300); Potassium 3.3 mEq/L (3.5-5.1); Sodium 132 mEq/L (136-145); eGFR For Non-African Americans > 60 (> 60)
[2018-07-30] MEDS: Gabapentin 300 MG CAPSULE PO SCH (09:35)
[2018-07-30 09:45] VITALS: BP 122/58
--- NOTE | 2018-07-30 09:51 | Discharge Summary ---
Orders not resulted at time of discharge: Pending orders 07/27/18 18:58 Culture,Blood [BC] Stat 07/27/18 19:13 Digoxin Stat Date of Encounter: 07/30/18 Time of Encounter: 09:40 - Discharge Diagnosis (1) Acute renal insufficiency Priority: Primary Status: Acute (2) Altered mental status Priority: Secondary Status: Acute Qualifiers: Altered mental status type: disorientation Qualified Code(s): R41.0 - Disorientation, unspecified (3) Paroxysmal atrial fibrillation Priority: Secondary Status: Chronic (4) Anemia Priority: Secondary Status: Acute Qualifiers: Anemia type: unspecified type Qualified Code(s): D64.9 - Anemia, unspecified (5) CKD (chronic kidney disease) stage 3, GFR 30-59 ml/min Priority: Secondary Status: Chronic Hospital course: Ms. Beck is a 48 year old female who came to the hospital after she was found poorly responsive by family. EMS was called and found blood sugar 60. Glucose and glucagon were administered with slight improvement. She was evaluated in emergency room and found to have elevated WBC and anemia but both were improved from 07/18/2018 day of discharge from her last [facility] hospitalization for acute gastroenteritis symptoms. She was also found to have azotemia likely due to dehydration. She was admitted to [facility] floor for ongoing care needs. Initial orders were written by the emergency room physician. I saw her on July 28 and performed a history and physical. She was started on IV fluids. Azotemia resolved with BUN and creatinine improving to 5 and 0.83 respectively by day of discharge. She had adequate amount of food and fluid intake by day of discharge. Leukocytosis and left shift resolved by day after admission. Blood cultures showed no growth at time of discharge. I felt she likely had a viral infection with dehydration that caused her altered mental status seen on admission. Her mental status returned to baseline. Hemoglobin dropped 8.4 with hydration but was stable at time of discharge. She will follow with her PCP within 1 week. - Time Spent with Patient Total time spent providing and/or coordinating discharge services: - Discharge Medications Home Medications: Citalopram [CeleXA] 10 mg PO DAILY 04/18/18 [History] Dicyclomine [Bentyl] 10 mg PO QID 04/18/18 [History] Duloxetine HCl [Cymbalta] 60 mg PO DAILY 04/18/18 [History] Gabapentin [Neurontin] 900 mg PO TID 04/18/18 [History] Pantoprazole Sodium [Protonix] 40 mg PO DAILY 04/18/18 [History] Quetiapine Fumarate [Seroquel] 50 mg PO HS 04/18/18 [History] Warfarin [Coumadin] 2 mg PO DAILY 04/18/18 [History] OxyCODONE Immed Rel [Roxicodone 10 MG] 10 mg PO TID PRN 07/16/18 [History] Ondansetron ODT [Zofran ODT] 4 mg SL Q4HR #20 tab.rapdis 07/18/18 [Rx] traZODone [TraZODone] 50 mg PO HS #7 tablet 07/18/18 [Rx] Buspirone HCl [Buspar] 15 mg PO TID 07/28/18 [History] Digoxin [Lanoxin] 0.125 mg PO DAILY 07/28/18 [History] Ergocalciferol (VITAMIN D2) [Vitamin D2] 50,000 unit PO Q1W 07/28/18 [History] Metoprolol [Lopressor] 50 mg PO BID 07/28/18 [History] OxyCODONE/APAP 10/325 1 tab PO QID PRN 07/28/18 [History] Allergies/Adverse Reactions: Allergy/AdvReac Type Severity Reaction Status Date / Time cephalexin [From Keflex] Allergy Hives Verified 04/18/18 18:21 Date of admission: 07/27/18 20:42 Primary care physician: Ananth Anna CNP - Constitutional Vitals: Temp Pulse Resp BP Pulse Ox 97.6 F 97 18 122/58 98 07/30/18 09:44 07/30/18 09:44 07/30/18 09:44 07/30/18 09:44 07/30/18 09:44 - Patient Status Disposition: Home, Self-Care Condition: Fair - Discharge Instructions Follow Up With: NONE,PCP [Primary Care Provider] - 1 week - Diet and Activity Activity: resume usual activities as tolerated Diet: advance to your usual diet - VTE Documentation of Mechanical Device: Intermittent pneumatic compression device
== END 2018-07-30 10:59 | disposition home or self-care (01) ==
LOC: INPPIK 18:17 → EMEROOPIK 18:17 → INPPIK 21:00
PROVIDERS: ADMIT Internal Medicine; ATTEND Internal Medicine